=== PATIENT | male | born 1960 | race Caucasian/White ===

== ENCOUNTER 2018-03-05 19:10 | Emergency (ER) | payer BC ==
[2018-03-05 19:27] VITALS: RESP 16; TEMP 98.6
[2018-03-05] MEDS ORDERED: MORPHINE SULFATE 4 MG/ML SYRINGE IM STA (21:09)
--- NOTE | 2018-03-05 21:54 | XR ---
EXAMINATION TYPE: XR hand complete LT DATE OF EXAM: 03/05/2018 COMPARISON: None HISTORY: Pain TECHNIQUE: 3 views FINDINGS: I see no fracture nor dislocation. Metacarpals are intact. There are no erosions. There is some spurring at the IP joint of the thumb. IMPRESSION: No acute abnormality of the left hand.
--- NOTE | 2018-03-05 21:56 | XR ---
EXAMINATION TYPE: XR wrist complete LT DATE OF EXAM: 03/05/2018 COMPARISON: NONE HISTORY: Fall. Pain TECHNIQUE: 4 views FINDINGS: I see no fracture nor dislocation. There are no erosions. There is some mild cystic change in the triquetrum. IMPRESSION: Degenerative cystic changes in the triquetrum. No fracture seen. 6 mm calcification poste rior to the carpus on the lateral view consistent with degenerative phenomenon.
--- NOTE | 2018-03-05 21:57 | XR ---
EXAMINATION TYPE: XR elbow complete LT DATE OF EXAM: 03/05/2018 COMPARISON: NONE HISTORY: Pain TECHNIQUE: 5 views FINDINGS: There is nondisplaced 8 mm chip fracture of the lateral aspect of the radial head. IMPRESSION: Intra-articular chip fracture of the radial head. No displacement.
--- NOTE | 2018-03-05 21:59 | XR ---
EXAMINATION TYPE: XR ankle complete LT DATE OF EXAM: 03/05/2018 COMPARISON: NONE HISTORY: Pain TECHNIQUE: 3 views FINDINGS: Ankle mortise is anatomic. There is a lucent line projected through the anterior calcaneus on the lateral view that could relate to a nondisplaced 8mm chip fracture. There are small Achilles c alcaneal spur. IMPRESSION: Possible chip fracture of the anterior calcaneus on the lateral view.
--- NOTE | 2018-03-05 22:58 | ED ---
General Adult HPI - General Source: patient, RN notes reviewed Mode of arrival: ambulatory Limitations: no limitations <Jesus Britton - Last Filed: 03/05/18 23:24> <Arabella Rudd P - Last Filed: 03/06/18 00:32> - General Chief complaint: Fall Stated complaint: fall Time Seen by Provider: 03/05/18 20:49 - History of Present Illness Initial comments: 57-year-old male presents to the emergency department for a chief complaint of fall from about 8 feet onto concrete occurring about one hour prior to arrival. Patient states he was cleaning his gutters when the ladder slipped out from under him. Patient states he fell onto his left arm as well as left leg. He did not land on his back or feet. He does not have any lumbar spine pain. Patient denies hitting his head or neck. Patient states he has pain in his left wrist and hand as well as left elbow. He also complains of pain in the left ankle. He denies any foot pain. He denies any loss of consciousness. Patient denies any abdominal or rib pain. Patient has no other complaints at this time including shortness of breath, chest pain, abdominal pain, nausea or vomiting, headache, or visual changes. (Jesus Britton) - Related Data Home Medications Medication Instructions Recorded Confirmed Ibuprofen [Motrin Ib] 800 mg PO ONCE PRN 03/05/18 03/05/18 Allergies Allergy/AdvReac Type Severity Reaction Status Date / Time No Known Allergies Allergy Verified 03/05/18 20:51 Review of Systems ROS Other: All systems not noted in ROS Statement are negative. <Jesus Britton - Last Filed: 03/05/18 23:24> ROS Other: All systems not noted in ROS Statement are negative. <Arabella Rudd P - Last Filed: 03/06/18 00:32> ROS Statement: Those systems with pertinent positive or pertinent negative responses have been documented in the HPI. Past Medical History Past Medical History: No Reported History History of Any Multi-Drug Resistant Organisms: None Reported Additional Past Surgical History / Comment(s): cystectomy of right flank. Past Psychological History: No Psychological Hx Reported Smoking Status: Never smoker Past Alcohol Use History: None Reported Past Drug Use History: None Reported <Reba,Jesus P - Last Filed: 03/05/18 23:24> General Exam Limitations: no limitations General appearance: alert, in no apparent distress Head exam: Present: atraumatic (No hematomas or signs of head injury.), normocephalic, normal inspection Eye exam: Present: normal appearance, PERRL, EOMI. Absent: scleral icterus, conjunctival injection, periorbital swelling ENT exam: Present: normal exam, mucous membranes moist, normal external ear exam Neck exam: Present: normal inspection, full ROM. Absent: tenderness, meningismus, lymphadenopathy Respiratory exam: Present: normal lung sounds bilaterally. Absent: respiratory distress, wheezes, rales, rhonchi, stridor Cardiovascular Exam: Present: regular rate, normal rhythm, normal heart sounds. Absent: systolic murmur, diastolic murmur, rubs, gallop, clicks Back exam: Absent: tenderness (No tenderness whatsoever throughout the thoracic and lumbar spines. Patient denies any back pain at all.) Neurological exam: Present: alert, oriented X3, CN II-XII intact, normal gait Psychiatric exam: Present: normal affect, normal mood <Jesus Britton P - Last Filed: 03/05/18 23:24> <Arabella Rudd P - Last Filed: 03/06/18 00:32> - General Exam Comments Initial Comments: Left upper extremity: Patient has full range of motion of the left wrist and digits in the left hand. He has radial pulse 2+ and capillary refill less than 2 seconds. Sensation intact in left upper extremity. Minimal edema noted of the dorsal left wrist. Patient does have scaphoid tenderness. Patient also has generalized elbow tenderness. He does have some limited range of motion with about 90 of flexion and 160 of extension. No prominent edema or ecchymosis noted of the left elbow. Left lower extremity: Patient has full range of motion of the left ankle. Minimal generalized ankle tenderness of both malleoli. No tenderness in patient denies pain in the foot. Patient does have a DP pulses 2+ and capillary refill less than 2 seconds. Sensation is intact in the left lower extremity. (Jesus Britton P) Vital Signs 03/05/18 03/05/18 19:21 23:36 Temperature 98.6 F Pulse Rate 60 86 Respiratory 16 16 Rate Blood Pressure 133/85 146/83 O2 Sat by Pulse 97 100 Oximetry Procedures <Jesus Britton P - Last Filed: 03/05/18 23:24> <Arabella Rudd - Last Filed: 03/06/18 00:32> - Procedures Initial comment: Neurovascular intact before splint application Indication: Left calcaneus nondisplaced chip fracture Type: OCL posterior short leg Wounds: no abrasions or lacerations underneath splint Neurovascular status: patient has sensation and movement of digits extending outside the splint, there is no cyanosis, capillary refill < 2 seconds Follow-up: patient given number for orthopedics and instructed to phone to make an appointment. Patient aware he can return to the Emergency Department if any difficulties. Neurovascular intact before splint application Indication: Left scaphoid tenderness Type: OCL thumb spica Wounds: no abrasions or lacerations underneath splint Neurovascular status: patient has sensation and movement of digits extending outside the splint, there is no cyanosis, capillary refill < 2 seconds Follow-up: patient given number for orthopedics and instructed to phone to make an appointment. Patient aware he can return to the Emergency Department if any difficulties. (Jesus Britton) Medical Decision Making <Jesus Britton P - Last Filed: 03/05/18 23:24> <Arabella Rudd - Last Filed: 03/06/18 00:32> - Medical Decision Making 57-year-old male presents to the emergency department for a fall from 8 feet off a ladder. Patient states the ladder started sliding and he fell off onto his left arm and left leg. He denies falling onto the bottom of his feet or back. He denies any back pain. He denies any neck pain. He did not hit his head or lose consciousness. Physical exam as noted in exam section. X-ray of the left ankle does show a possible nondisplaced chip fracture of the anterior calcaneus on the lateral view. Patient was put in a dorsal short leg OCL with web roll padding to the heel. X-ray of the left elbow shows an intra-articular fracture of the radial head without displacement. Patient was put in a sling for this. Wrist x-ray does not show any fractures. However there is a 6 mm calcification posterior to the carpus consistent with degenerative phenomenon that patient was informed of. Patient also has scaphoid tenderness in that wrist so was splinted in a thumb spica. At this time patient will follow up with orthopedics tomorrow. He was educated to try not to place weight on the heel. He is to return to the emergency department if he has any worsening symptoms which he is aware of. (Jesus Britton) I personally saw and examined the patient. I reviewed and agree with the mid- level provider findings including all diagnostic interpretations and treatment plans as written unless otherwise stated. I was present for palacios portions of any procedures performed. (Arabella Rudd) Disposition Is patient prescribed a controlled substance at d/c from ED?: No Time of Disposition: 22:57 <Jesus Britton - Last Filed: 03/05/18 23:24> <Arabella Rudd - Last Filed: 03/06/18 00:32> Clinical Impression: Radial head fracture, Calcaneal fracture Disposition: HOME SELF-CARE Condition: Good Instructions: Elbow Fracture (ED), Calcaneal Fracture (ED), Scaphoid Fracture ( ED) Additional Instructions: Please take Motrin and Tylenol for pain. Please rest ice and elevate injuries. Please use crutches as needed for ambulation. Please follow-up with orthopedics tomorrow for radial head fracture, calcaneous fracture, and scaphoid tenderness. Return to the emergency department if you have any worsening symptoms. Referrals: Jackson Hdez MD [STAFF PHYSICIAN] - 1-2 days
[2018-03-05] MEDS ORDERED: KETOROLAC 30 MG/ML 1 ML VIAL IM STA (23:10)
[2018-03-05 23:37] VITALS: BP 146/83; PULSE 86
== END 2018-03-05 23:15 | disposition home or self-care (01) ==
LOC: EC 19:10
DX: S52.125A Nondisplaced fracture of head of left radius, initial encounter for closed fracture (principal); S92.002A Unspecified fracture of left calcaneus, initial encounter for closed fracture; M25.832 Other specified joint disorders, left wrist; W11.XXXA Fall on and from ladder, initial encounter; Y93.89 Activity, other specified; Y92.009 Unspecified place in unspecified non-institutional (private) residence as the place of occurrence of the external cause
CPT/HCPCS: 73080; 73110; 73130; 73610; 99283; 29125; 29515; 96372 ×2; J2270; J1885

== ENCOUNTER 2022-11-11 07:21 | Day surgery (SDC) | payer BC ==
[~2022-11-11 07:21] MED LIST: Pre Op ABX Message 1 EACH MISC MISCELLANE ONE
[2022-11-11] MEDS ORDERED: ONDANSETRON 4 MG/2 ML VIAL IVP ONE (07:47)
[2022-11-11] MEDS ORDERED: MIDAZOLAM 2 MG/2 ML VIAL IV PRN (07:47)
[2022-11-11] MEDS ORDERED: DEXAMETHASONE SOD PHOSPHATE 4 MG/ML 1 ML VIAL IV ONE (07:47)
[2022-11-11] MEDS ORDERED: SCOPOLAMINE 1 MG/72 HR PATCH TRANSDERM ONE (07:47)
[2022-11-11] MEDS ORDERED: LACTATED RINGERS 1,000 ML IV SCH (07:47)
[2022-11-11] MEDS ORDERED: HYDROmorphone 0.5 MG/0.5 ML SYRINGE IVP PRN (07:47)
[2022-11-11] MEDS ORDERED: HEPARIN SODIUM,PORCINE/PF 5,000 UNIT/0.5 ML SYRINGE SQ ONE (08:08)
[2022-11-11] MEDS ORDERED: HEPARIN SODIUM,PORCINE 5,000 UNIT/ML 1 ML VIAL SQ ONE (08:14)
[2022-11-11] MEDS ORDERED: KETOROLAC 30 MG/ML 1 ML VIAL ONE (08:37)
[2022-11-11] MEDS ORDERED: PROPOFOL 10 MG/ML 20 ML VIAL IV ONE (08:37)
[2022-11-11] MEDS ORDERED: LIDOCAINE 2% INJ 20 MG/ML (2 ML VIAL) ONE (08:37)
[2022-11-11] MEDS ORDERED: MIDAZOLAM 2 MG/2 ML VIAL ONE (08:37)
[2022-11-11] MEDS ORDERED: fentaNYL (PF) 50 MCG/ML 2 ML AMP ONE (08:37)
[2022-11-11] MEDS ORDERED: BUPIVACAIN-EPI 0.25%-1:200,000 30 ML VIAL SQ ONE ×3 (08:52→08:56)
[2022-11-11] MEDS ORDERED: HYDROcodone/APAP 5-325MG 1 EACH TAB PO PRN (09:46)
[2022-11-11] MEDS ORDERED: NALOXONE 0.4 MG/ML 1 ML VIAL IV PRN (09:46)
[2022-11-11 09:52] VITALS: RESP 16; TEMP 97.6
--- NOTE | 2022-11-11 09:58 | P.OP ---
Date of Procedure: 11/11/22 Procedure(s) Performed: PREOPERATIVE DIAGNOSIS: Right recurrent arm lipoma, left anterior thigh lipoma POSTOPERATIVE DIAGNOSIS: Same PROCEDURE: Excision recurrent right arm lipoma subfascial, excision left anterior thigh lipoma subfascial, intermediate closure both sites SURGEON: Lizandro EBL: 10 Cory ANESTHESIA: Gen. COMPLICATIONS: None OPERATIVE PROCEDURE: Patient placed in the supine position. He was then placed under general anesthesia. The right lateral upper arm was prepped and draped sterilely along with the anterior aspect of the left thigh. The left thigh lesion was first addressed. A longitudinal incision was made overlying the palpable mass. Dissection through the subcutaneous fat and fascia took place using electrocautery. The muscle was bluntly dissected until the lipomatous mass was encountered. This measured 2 x 4 cm. This was excised using blunt dissection and cautery. This had a mildly infiltrative appearance as there was adherence to the surrounding musculature. No visible fat was left in that area. No bleeding was seen. The subcutaneous tissues were closed using 3-0 Vicryl sutures including the fascia. The skin was then closed using a running 4-0 Monocryl stitch. The right lateral upper arm was then addressed in a similar fashion. The patient had a previous scar here. This was re-incised and lengthened slightly superiorly. The subcutaneous tissues were divided using electrocautery. Because of the previous surgery and some scarring and was difficult to visualize the fascial nicely however we entered into the subfascial location as we could visualize muscle fibers. The muscle fibers were split along the length of the fibers. The underlying lipomatous mass was encountered. This again had a somewhat infiltrative appearance and was adherent to the surrounding musculature circumferentially. There were portions of the muscle that as visualized appeared to possibly have some additional small fatty deposits. Grossly the lipomatous mass was excised at a size of 3 x 5 cm. No bleeding was seen. Subcutaneous tissues again closed using interrupted 3-0 Vicryl sutures including the fascia layer. Skin closed using a running 4-0 Monocryl stitch. Skin glue applied at both sites. DISPOSITION: Stable to recovery room. Discussed intraoperative findings with pathology so they would be aware of the gross appearance. Findings discussed with the patient's family as well. We'll await final pathology.
[2022-11-11 10:19] VITALS: PULSE 58
[2022-11-11 10:38] VITALS: BP 118/79
== END 2022-11-11 10:57 | disposition home or self-care (01) ==
LOC: OR 07:21
PROVIDERS: ATTEND Surgery
DX: D17.21 Benign lipomatous neoplasm of skin and subcutaneous tissue of right arm (principal); D17.24 Benign lipomatous neoplasm of skin and subcutaneous tissue of left leg; Z98.890 Other specified postprocedural states; Z79.899 Other long term (current) drug therapy; K21.9 Gastro-esophageal reflux disease without esophagitis
CPT/HCPCS: 24076; 27328; 88304; J2250; J1644; J1100; J0690; J2405; J3010; J1885; J2704; J2001

== ENCOUNTER → 2024-04-09 | Outpatient (CLI) | payer BC ==
--- NOTE | 2024-04-09 10:00 | US ---
EXAMINATION TYPE: US thyroid st tissue head/neck DATE OF EXAM: 04/09/2024 COMPARISON: NONE CLINICAL INDICATION: Male, 63 years old with history of E04.9 NONTOXIC GOITER; Lump TECHNIQUE: Grayscale and color Doppler imaging of the thyroid gland. FINDINGS: GLAND SIZE: Right Lobe: 5.2 x 1.7 x 1.7 cm Overall Parenchyma: Homogenous Left Lobe: 6.0 x 1.9 x 1.8 cm Overall Parenchyma: Homogenous Isthmus Thickness: 0.3 cm NODULES RIGHT: # of nodules measured on right: 0 LEFT: # of nodules measured on left: 1 1. 1.3 X 0.9 x 0.7 cm, upper lateral Prior size: No previous TIRADS Score: 6 TIRADS Category 4: Composition: Solid or almost completely solid (2 points). Echogenicity: Hypoechoic (2 points). Shape: Wider than tall (0 points). Margin: Lobulated or irregular (2 points). Echogenic foci:None or large comet-tail artifacts (0 points) Recommendation: If >1.5cm: FNA; If >1cm: Follow up at 1,2, 3,5 years ISTHMUS: # of nodules measured in the isthmus: 0 Bilateral neck scanned, no evidence of lymphadenopathy. IMPRESSION: Left thyroid nodule which is suspicious and tissue sampling is recommended given its irregular margin s. [facility], , 04/09/2024 9:58 AM
== END | disposition home or self-care (01) ==
LOC: RADUSWWP 08:29
PROVIDERS: ATTEND Family Medicine
DX: E04.9 Nontoxic goiter, unspecified (principal)
CPT/HCPCS: 76536

== ENCOUNTER 2024-04-23 12:37 | Day surgery (SDC) | payer BC ==
[2024-04-23] MEDS: ALPRAZolam 0.5 MG TAB PO PRN (12:59)
[2024-04-23 13:08] VITALS: TEMP 98.2
[2024-04-23 14:06] VITALS: BP 131/80; PULSE 84; RESP 15
--- NOTE | 2024-04-23 14:36 | US ---
EXAMINATION TYPE: US FNA thyroid first lesion DATE OF EXAM: 04/23/2024 2:29 PM COMPARISON: None. CLINICAL INDICATION: Male, 63 years old with history of NONTOXIC SINGLE THYROID NODULE; left thyroid nodule, thyroid nodule TECHNIQUE/FINDINGS: The procedure was explained to the patient. The risks, complications, benefits and alternatives were discussed and any questions were answered. Informed consent was obtained. Patient was placed supin e on the ultrasound table and prepped and draped in the usual sterile fashion. Utilizing a 25 gauge needle, five passes were made into the request of left thyroid nodule.. Patient was stable throughout the procedure. Pathology is pending. All elements of maximal barrier technique were utilized. IMPRESSION: 1. Successful ultrasound guided FNA thyroid biopsy. [facility], , 04/23/2024 2:34 PM
== END 2024-04-23 14:07 | disposition home or self-care (01) ==
LOC: RADPROMAIN 12:37
PROVIDERS: ATTEND Family Medicine
DX: E04.1 Nontoxic single thyroid nodule (principal)
CPT/HCPCS: 10005

== ENCOUNTER 2024-06-06 12:38 | Day surgery (SDC) | payer BC ==
[2024-06-06] MEDS: ALPRAZolam 0.5 MG TAB PO STA (13:30)
[2024-06-06 13:41] VITALS: RESP 18; TEMP 97.8
--- NOTE | 2024-06-06 14:49 | US ---
EXAMINATION TYPE: US FNA thyroid first lesion DATE OF EXAM: 06/06/2024 2:31 PM COMPARISON: 04/23/2024 CLINICAL INDICATION:Male, 63 years old with history of E04.1 NONTOXIC SINGLE THYROID NODULE; , ATTENDING: Dr. Murali Torres PROCEDURE: Informed consent was obtained. The risks and benefits of the procedure were discussed with the patien t. The site was marked. Timeout procedure was performed Ultrasound imaging demonstrates highly suspicious left thyroid gland nodule. The patient was prepped, draped in the usual sterile fashion, and locally anesthetized with 1% lidoca ine. 2 x 18-gauge core needle biopsies were obtained. Samples were sent to the pathology department for further analysis. Patient tolerated the procedure without incident and was sent home in stable c ondition. IMPRESSION: Successful ultrasound guided core biopsy with samples submitted. Given its appearance on sonography s urgical excision should be considered if pathology is benign. [facility], , 06/06/2024 2:47 PM
[2024-06-06 15:52] VITALS: BP 118/70; PULSE 50
== END 2024-06-06 15:15 | disposition home or self-care (01) ==
LOC: RADPROMAIN 12:38
PROVIDERS: ATTEND Internal Medicine
DX: E04.1 Nontoxic single thyroid nodule (principal); E06.1 Subacute thyroiditis
CPT/HCPCS: 10005; 21550; 88305; 88341